=== PATIENT | male | born 1945 | race Caucasian/White ===

== ENCOUNTER → 2020-11-09 14:03 | Outpatient (BNVA) | payer MEDICARE, SELFPAY | PROVIDERS: PCP Internal Medicine; Visit Provider Hospitalist | DX: R06.00 Dyspnea, unspecified (principal); J44.1 Chronic obstructive pulmonary disease with (acute) exacerbation; R05 Cough; Z79.899 Other long term (current) drug therapy | CPT/HCPCS: 99212 ==

== ENCOUNTER → 2020-12-06 14:07 | Outpatient (BNVA) | payer MEDICARE, SELFPAY | PROVIDERS: PCP Internal Medicine; Visit Provider Hospitalist | DX: R05 Cough (principal); R06.00 Dyspnea, unspecified; J44.1 Chronic obstructive pulmonary disease with (acute) exacerbation; J90 Pleural effusion, not elsewhere classified | CPT/HCPCS: 99212 ==

== ENCOUNTER → 2021-01-24 15:03 | Outpatient (BNVA) | payer MEDICARE, SELFPAY | PROVIDERS: PCP Internal Medicine; Visit Provider Hospitalist | DX: J44.1 Chronic obstructive pulmonary disease with (acute) exacerbation (principal); J90 Pleural effusion, not elsewhere classified; R06.00 Dyspnea, unspecified | CPT/HCPCS: 99212 ==

== ENCOUNTER → 2021-06-18 15:31 | Outpatient (BNVA) | payer MEDICARE, SELFPAY | PROVIDERS: PCP Internal Medicine; Visit Provider Hospitalist | DX: J44.1 Chronic obstructive pulmonary disease with (acute) exacerbation (principal); J90 Pleural effusion, not elsewhere classified; R05.9 Cough, unspecified; Z79.899 Other long term (current) drug therapy | CPT/HCPCS: 99212 ==

== ENCOUNTER 2021-07-17 14:00 | Outpatient (RCR) | payer MEDICARE, SELFPAY | END 2021-08-23 11:30 | disposition home or self-care (01) | LOC: HO.PT 14:00 | PROVIDERS: Visit Provider Internal Medicine | DX: R26.9 Unspecified abnormalities of gait and mobility (principal) | CPT/HCPCS: 97110; 97112; 97116; 97162; 97164; 97530 ==

== ENCOUNTER → 2021-08-01 10:35 | Outpatient (BNVA) | payer MEDICARE, SELFPAY | PROVIDERS: PCP Internal Medicine; Visit Provider Urology | DX: N28.1 Cyst of kidney, acquired (principal); C64.9 Malignant neoplasm of unspecified kidney, except renal pelvis | CPT/HCPCS: 99212 ==

== ENCOUNTER → 2021-08-16 11:24 | Outpatient (BNVA) | payer MEDICARE, SELFPAY | PROVIDERS: PCP Internal Medicine; Visit Provider Urology | DX: C64.9 Malignant neoplasm of unspecified kidney, except renal pelvis (principal) | CPT/HCPCS: Q3014 ==

== ENCOUNTER → 2022-01-07 11:21 | Outpatient (BNVA) | payer MEDICARE, SELFPAY | PROVIDERS: PCP Internal Medicine; Visit Provider Urology | DX: C64.9 Malignant neoplasm of unspecified kidney, except renal pelvis (principal) | CPT/HCPCS: Q3014 ==

== ENCOUNTER 2022-04-17 09:28 | Outpatient (RCR) | payer MEDICARE, SELFPAY | END 2022-04-29 14:07 | disposition home or self-care (01) | LOC: HO.WCC 09:28 | PROVIDERS: Visit Provider Surgery | DX: L98.492 Non-pressure chronic ulcer of skin of other sites with fat layer exposed (principal); G62.9 Polyneuropathy, unspecified; I11.0 Hypertensive heart disease with heart failure; I50.9 Heart failure, unspecified; J44.9 Chronic obstructive pulmonary disease, unspecified; Z79.2 Long term (current) use of antibiotics; Z79.899 Other long term (current) drug therapy | CPT/HCPCS: 99212; 99213 ==

== ENCOUNTER 2022-07-07 15:18 | Outpatient (REF) | payer MEDICARE, SELFPAY ==
[2022-07-07 15:36] LABS: MANUAL DIFF FLAG NO
[2022-07-07 16:25] LABS: Basophils Absolute Auto 0.1 X10*3/uL (0.0-0.2); Basophils Percent Auto 0.8 % (0-2); Eosinophils Absolute Auto 0.1 X10*3/uL (0.0-0.4); Hematocrit 40.2 % (42.0-52.0); Hemoglobin 13.2 g/dl (14.0-18.0); Imm Gran Abs Auto 0.02 X10*3/uL (0.00-0.03); Imm Gran Pct Auto 0.3 % (0.0-0.4); Lymphocytes Absolute Auto 1.2 X10*3/uL (1.2-4.9); Lymphocytes Percent Auto 19.9 % (20-40); Mean Corpuscular HGB Conc 32.8 g/dl (31.0-36.0); Mean Corpuscular Hemoglobin 31.3 pg (27.0-33.0); Mean Corpuscular Volume 95.3 fL (80.0-98.0); Monocytes Absolute Auto 0.5 X10*3/uL (0.1-1.2); Monocytes Percent Auto 7.8 % (2-11); Neutrophils Absolute Auto 4.3 x10*3/uL (2.0-8.3); Neutrophils Percent Auto 69.2 % (45-73); Platelet Count 236 X10*3/uL (160-400); Red Blood Count 4.22 X10*6/uL (4.60-5.80); Red Cell Distribution Width 15.7 % (11.0-16.0); White Blood Count 6.1 X10*3/uL (4.8-10.8)
[2022-07-07 16:33] LABS: Prothrombin Time 11.9 SEC (10.0-13.1)
[2022-07-07 16:36] LABS: Partial Thromboplastin Time 33.3 SEC (26.0-36.4)
[2022-07-07 16:47] LABS: Blood Urea Nitrogen 17 mg/dL (9-16); Estimated Glomerular Filt Rate > 60
== END 2022-07-07 15:19 | disposition home or self-care (01) ==
LOC: HO.CT 15:18
PROVIDERS: PCP Internal Medicine; Visit Provider Urology
DX: C64.9 Malignant neoplasm of unspecified kidney, except renal pelvis (principal)
CPT/HCPCS: 36415; 82565; 84520; 85025; 85610; 85730

== ENCOUNTER → 2022-07-15 11:36 | Outpatient (BNVA) | payer MEDICARE, SELFPAY | PROVIDERS: PCP Internal Medicine; Visit Provider Urology | DX: R33.9 Retention of urine, unspecified (principal) ==

== ENCOUNTER → 2022-07-15 11:36 | Outpatient (BNVA) | payer MEDICARE, SELFPAY | PROVIDERS: PCP Internal Medicine; Visit Provider Urology | DX: Z13.89 Encounter for screening for other disorder (principal) ==

== ENCOUNTER → 2022-08-19 15:55 | Outpatient (BNVA) | payer MEDICARE, SELFPAY | PROVIDERS: PCP Internal Medicine; Visit Provider Urology | DX: R33.9 Retention of urine, unspecified (principal); C64.9 Malignant neoplasm of unspecified kidney, except renal pelvis | CPT/HCPCS: Q3014 ==

== ENCOUNTER → 2022-09-26 09:53 | Outpatient (BNVA) | payer MEDICARE, SELFPAY | PROVIDERS: PCP Internal Medicine; Visit Provider Urology | DX: R33.9 Retention of urine, unspecified (principal) | CPT/HCPCS: 51700; 51798; 99212 ==

== ENCOUNTER 2023-02-13 13:08 | Outpatient (REF) | payer MEDICARE, SELFPAY ==
--- NOTE | ~2023-02-13 | US_ITS ---
EXAMINATION: US RETROPERITONEAL LIMITED (RENAL ONLY) CLINICAL INFORMATION: Malignant neoplasm of unspecified kidney, except renal pelvis. COMPARISON: None available. TECHNIQUE: Real-time imaging of the kidneys. FINDINGS: RIGHT KIDNEY: 10.0 x 3.5 x 5.8 cm (SAG x AP x TRV). The kidney is normal in size, contour, and echogenicity. Renal cortical thickness is normal. No renal calculi or hydronephrosis. Benign-appearing renal cysts measuring up to 5 cm. No follow-up imaging is recommended. A 2.1 cm prominent echogenic region in the right lower pole renal sinus favored to reflect prominent renal sinus fat though a discrete mass would be difficult to exclude and therefore recommend further evaluation with contrast-enhanced CT or MR renal mass protocol. LEFT KIDNEY: 11.4 x 5.4 x 5.3 cm (SAG x AP x TRV). The kidney is normal in size, contour, and echogenicity. Renal cortical thickness is normal. No renal calculi or hydronephrosis. Benign-appearing renal cysts measuring up to 1.6 cm. No follow-up imaging is recommended. US/US renal BI IMPRESSION: A 2.1 cm prominent echogenic region in the right lower pole renal sinus favored to reflect prominent renal sinus fat though a discrete mass would be difficult to exclude and therefore recommend further evaluation with contrast-enhanced CT or MR renal mass protocol.
== END 2023-02-13 13:09 | disposition home or self-care (01) ==
LOC: HO.US 13:08
PROVIDERS: PCP Internal Medicine; Visit Provider Urology
DX: C64.9 Malignant neoplasm of unspecified kidney, except renal pelvis (principal)
CPT/HCPCS: 76775

== ENCOUNTER 2023-02-24 11:54 | Outpatient (AMB) | payer MEDICARE, SELFPAY ==
--- NOTE | 2023-02-24 12:03 | A.OFFVIS_ITS ---
Intake Intake Visit Reasons: 6M US(set) Intake Note: Patient is Present for Follow Up US/PVR Urology Medication: Finasteride, Oxybutynin, Vitamin B6, Tamsulosin Antibiotic Allergies: None Blood Thinners: Plavix Pharmacy: [facility] PVR: 16 Allergies No Known Allergies Allergy (Verified 02/24/23 12:05) Medication List - Last Reconciled 02/24/23 by Kaushal Ballesteros MD albuterol sulfate 90 mcg/actuation (ProAir HFA) 2 puffs inhalation QID allopurinol 100 mg PO DAILY amlodipine 10 mg PO DAILY atorvastatin 20 mg PO BEDTIME benzonatate 200 mg PO TID PRN 30 days budesonide 0.5 mg (2 mL) inhalation BID 30 days carvedilol 3.125 mg PO cetirizine (Zyrtec) 10 mg PO DAILY 30 days ciprofloxacin HCl 250 mg PO BID 5 days clopidogrel 75 mg PO DAILY clotrimazole 1% appl topical BID escitalopram oxalate 20 mg PO DAILY finasteride 5 mg PO DAILY 90 days fluticasone propionate 50 mcg/actuation 2 sprays intranasal DAILY 30 days [id number]-wmqsjwkiw-khyyqkpq 100-62.5-25 mcg (Trelegy Ellipta) 1 inh inhalation DAILY 30 days folic acid 1 mg PO DAILY furosemide (Lasix) 20 mg PO DAILY hydralazine 25 mg PO BID ipratropium bromide 17 mcg/actuation (Atrovent HFA) 0 mcg inhalation lactulose (Enulose) mL PO BID PRN levalbuterol HCl 0.63 mg (3 mL) inhalation BID 90 days metoprolol succinate ER 50 mg PO DAILY metoprolol tartrate 25 mg PO BID nifedipine ER 90 mg PO omeprazole 40 mg PO DAILY oxybutynin chloride 5 mg PO Q8H PRN 30 days potassium chloride ER (Klor-Con M) 20 mEq PO BID pyridoxine (vitamin B6) 50 mg PO spironolactone 50 mg PO BID terazosin 10 mg PO BEDTIME 30 days trazodone 100 mg PO HPI HPI Comments History of Present Illness Details Brayden CORTEZ is a very pleasant male. He is a patient of Dr Hartley. He is seen for the following urologic conditions. - renal mass - erectile dysfunction - lower urinary tract symptoms Has been getting up 3 times at night Will adjust voiding medications Switch from tamsulosin to terazosin Two month follow-up tele visit Will need renal MRI early 2023 Renal Cancer:? They present for ?evaluation of renal mass, right side.? The renal mass was diagnosed?incidentally ?- has multiple renal cysts. MRI performed showing 1.7 cm solid right lower pole lesion..? 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 Intervention - 12/20 cryotherapy [facility] Dr Dennison Lower urinary tract symptoms Episode of urinary retention following left inguinal hernia repair Had over 1000 cc in bladder Emery catheter for 3 weeks Accompanied by daughter who is a nurse at [employer] Past voiding trial Erectile dysfunction:? Has not used medications since last visit. ? He presents today for?for continued evaluation and management of erectile dysfunction.? Symptoms have been present for/since?Ongoing since coronary bypass.? Current treatment includes?none.? Prior therapies include?oral medications ?- Viagra previously.? Currently they are?in a stable relationship.? Associated problems? hypertension ?Yes ? diabetes ?No ? dyslipidemia ?Yeso ? Overall he is ?is not satisfied with the current management.? Therapeutic plan includes?increasing dose of oral medication ?- escalating dose to maximum 200 mg.? PFSH Medical History Afib COPD (chronic obstructive pulmonary disease) Cough Dyspnea Heart disease Pleural effusion Social History Patient Tobacco Use Status: Former Tobacco user Tobacco use type: Cigarette Years Smoked: 8 years Review of Systems Const Denies chills and Denies fever(s) Card Reports no additional complaints and Denies syncope Resp Denies cough GI Denies abdominal pain and Denies heartburn Reports as per HPI and Denies change in libido Neuro Denies syncope Psych Denies change in libido Endo Denies change in libido Physical Exam Const General: cooperative, healthy appearing, comfortable and no acute distress Orientation/consciousness: patient oriented x3 HEENT Face and sinus: Yes normal facial exam Mouth: moist mucous membranes Neck Neck: Yes normal visual inspection, Yes full ROM and Yes trachea midline Chest Chest palpation & inspection: normal inspection of the chest Resp Effort & Inspection: normal respiratory effort, able to speak in complete sentences and no respiratory distress GI Inspection: Yes normal to inspection Back/Spine/Pelvis Cervical Spine: normal cervical lordosis Thoracic/Lumbar Spine: thoracic and lumbar spine normal to inspection Skin General skin exam: no rashes or lesions noted Neuro General: patient oriented x3, gait normal, tone normal and moves all extremities Extrem General: Yes normal to inspection and Yes capillary refill normal Office Procedures Post Void Residual Post Residual Void Post Void Residual (PVR): 16 [id number] Void Residual by ultrasound Assessment & Plan Assessment & Plan (1) Incomplete emptying of bladder due to benign prostatic hyperplasia: Code(s): N40.1 - Benign prostatic hyperplasia with lower urinary tract symptoms; R33.9 - Retention of urine, unspecified (2) Weak urinary stream: Code(s): R39.12 - Poor urinary stream Plan Two month trial terazosin Orders: Orders AMB Urinalysis Automated Today Z13.9 - Encounter for screening, unspecified AMB Post Void Residual by ultrasound Today R33.9 - Retention of urine, unsp ecified Medications: New terazosin 10 mg PO BEDTIME 30 caps 1RF 30 days N13.8 - Other obstructive and reflux uropathy, N40.1 - Benign prostatic hyperplasia with lower urinary tract symptoms, R33.9 - Retention of urine, unspecified Discontinued tamsulosin Discontinued Reason: Doctor's Order 0.8 mg (2 x 0.4 mg) PO BEDTIME 180 caps 3RF 90 days R33.9 - Retention of urine, unspecified Patient Instructions: Imaging studies, laboratory and physical exam results were discussed and reviewed in detail. No major barriers to patient understanding were identified. An opportunity to ask questions regarding the treatment plan was provided. All questions were answered. The patient expressed understanding and agreement with the above treatment plan. The patient is aware they should contact our office by phone for worsening of their current condition or the appearance of new urologic symptoms. Compliance is encouraged with any medications and followup testing that is ordered. It is a privilege to participate in the urologic care of your patient. If you have any questions or concerns regarding treatment for the above conditions, or other urologic issues, please do not hesitate to contact me. The office telephone contact is [phone]. This note is constructed using voice recognition software. While every effort has been made to ensure accuracy new autos delivery driver errors may have been included. Yours sincerely, Dr Kaushal Ballesteros MD, [facility] - Urology Providers of Expert, Compassionate Care for the Genitourinary System Coding Level of Care Code Est Pt Level 4 (75635) Diagnoses Incomplete emptying of bladder due to benign prostatic hyperplasia N40.1; R33.9 Weak urinary stream R39.12 CPT Codes Post Residual Void - PVR CPT Code: 08765-Qlpf Void Residual by ultrasound ([id number])
== END 2023-02-24 12:22 | disposition home or self-care (01) ==
PROVIDERS: PCP Internal Medicine; Visit Provider Urology
DX: N40.1 Benign prostatic hyperplasia with lower urinary tract symptoms (principal); R33.9 Retention of urine, unspecified; R39.12 Poor urinary stream
CPT/HCPCS: 99214

== ENCOUNTER → 2023-02-24 11:54 | Outpatient (BNVA) | payer MEDICARE, SELFPAY | PROVIDERS: Visit Provider Urology | DX: N40.1 Benign prostatic hyperplasia with lower urinary tract symptoms (principal); N13.8 Other obstructive and reflux uropathy; R33.9 Retention of urine, unspecified; R39.12 Poor urinary stream; N52.9 Male erectile dysfunction, unspecified; N28.89 Other specified disorders of kidney and ureter | CPT/HCPCS: 51798; 99212 ==

== ENCOUNTER 2023-04-29 11:18 | Outpatient (AMB) | payer MEDICARE, SELFPAY ==
--- NOTE | 2023-04-29 11:48 | MHC.OFFVIS ---
Intake Intake Visit Reasons: 2m follow up Allergies No Known Allergies Allergy (Verified 04/29/23 11:18) Medication List - Last Reconciled 04/29/23 by Kaushal Ballesteros MD albuterol sulfate 90 mcg/actuation (ProAir HFA) 2 puffs inhalation QID allopurinol 100 mg PO DAILY amlodipine 10 mg PO DAILY atorvastatin 20 mg PO BEDTIME benzonatate 200 mg PO TID PRN 30 days budesonide 0.5 mg (2 mL) inhalation BID 30 days carvedilol 3.125 mg PO cetirizine (Zyrtec) 10 mg PO DAILY 30 days ciprofloxacin HCl 250 mg PO BID 5 days clopidogrel 75 mg PO DAILY clotrimazole 1% appl topical BID escitalopram oxalate 20 mg PO DAILY finasteride 5 mg PO DAILY 90 days fluticasone propionate 50 mcg/actuation 2 sprays intranasal DAILY 30 days [id number]-axtuivfww-yzpyctlb 100-62.5-25 mcg (Trelegy Ellipta) 1 inh inhalation DAILY 30 days folic acid 1 mg PO DAILY furosemide (Lasix) 20 mg PO DAILY hydralazine 25 mg PO BID ipratropium bromide 17 mcg/actuation (Atrovent HFA) 0 mcg inhalation lactulose (Enulose) mL PO BID PRN levalbuterol HCl 0.63 mg (3 mL) inhalation BID 90 days metoprolol succinate ER 50 mg PO DAILY metoprolol tartrate 25 mg PO BID nifedipine ER 90 mg PO omeprazole 40 mg PO DAILY oxybutynin chloride 5 mg PO Q8H PRN 30 days potassium chloride ER (Klor-Con M) 20 mEq PO BID pyridoxine (vitamin B6) 50 mg PO spironolactone 50 mg PO BID terazosin 10 mg PO BEDTIME 90 days trazodone 100 mg PO HPI HPI Comments History of Present Illness Details Brayden CORTEZ is a very pleasant male. He is a patient of Dr Hartley. He is seen for the following urologic conditions. - renal mass - erectile dysfunction - lower urinary tract symptoms Telemedicine Evaluation 15 min Consultation [facility] [email or web address] attempted Minor benefit from terazosin Will refill prescription Plan for renal MRI early 2023 - will be 18 months from cryotherapy Home tel [phone] Renal Cancer:? They present for ?evaluation of renal mass, right side.? The renal mass was diagnosed?incidentally ?- has multiple renal cysts. MRI performed showing 1.7 cm solid right lower pole lesion..? 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 Intervention - 12/[address] [facility] [address] Dennison Lower urinary tract symptoms Episode of urinary retention following left inguinal hernia repair Had over 1000 cc in bladder Emery catheter for 3 weeks Accompanied by daughter who is a nurse at [employer] Past voiding trial Erectile dysfunction:? Has not used medications since last visit. ? He presents today for?for continued evaluation and management of erectile dysfunction.? Symptoms have been present for/since?Ongoing since coronary bypass.? Current treatment includes?none.? Prior therapies include?oral medications ?- Viagra previously.? Currently they are?in a stable relationship.? Associated problems? hypertension ?Yes ? diabetes ?No ? dyslipidemia ?Yes ? Overall he is ?is not satisfied with the current management.? Therapeutic plan includes?increasing dose of oral medication ?- escalating dose to maximum 200 mg.? PFSH Medical History Pleural effusion Cough Afib Heart disease Dyspnea COPD (chronic obstructive pulmonary disease) Social History Patient Tobacco Use Status: Former Tobacco user Tobacco use type: Cigarette Years Smoked: 8 years Assessment & Plan Assessment & Plan (1) Urinary retention: Code(s): R33.9 - Retention of urine, unspecified (2) Renal cancer: Comment: 12/20 Right lower pole 2.5 cm - chromphobe Code(s): C64.9 - Malignant neoplasm of unspecified kidney, except renal pelvis Plan Four month follow-up MRI with labs Orders: Orders kidney wo con 4 Months C64.9 - Malignant neoplasm of unspecified kidney, except renal pelvis Creatinine 4 Months C64.9 - Malignant neoplasm of unspecified kidney, except renal pelvis Blood Urea Nitrogen 4 Months C64.9 - Malignant neoplasm of unspecified kidney, except renal pelvis Medications: Changed From terazosin 10 mg PO BEDTIME 30 days 30 caps 1RF N13.8 - Other obstructive and reflux uropathy, N40.1 - Benign prostatic hyperplasia with lower urinary tract symptoms, R33.9 - Retention of urine, unspecified To terazosin 10 mg PO BEDTIME 90 days 90 caps 1RF N13.8 - Other obstructive and reflux uropathy, N40.1 - Benign prostatic hyperplasia with lower urinary tract symptoms, R33.9 - Retention of urine, unspecified Patient Instructions: Imaging studies, laboratory and physical exam results were discussed and reviewed in detail. No major barriers to patient understanding were identified. An opportunity to ask questions regarding the treatment plan was provided. All questions were answered. The patient expressed understanding and agreement with the above treatment plan. The patient is aware they should contact our office by phone for worsening of their current condition or the appearance of new urologic symptoms. Compliance is encouraged with any medications and followup testing that is ordered. It is a privilege to participate in the urologic care of your patient. If you have any questions or concerns regarding treatment for the above conditions, or other urologic issues, please do not hesitate to contact me. The office telephone contact is [phone]. This note is constructed using voice recognition software. While every effort has been made to ensure accuracy catering administrative assistant errors may have been included. Yours sincerely, Dr Kaushal Ballesteros MD, [facility] - Urology Providers of Expert, Compassionate Care for the Genitourinary System Telehealth Telehealth Location of provider rendering services: practice address Location of patient: address on file Patient Identification confirmed using: Name, : Yes Telehealth method: video Patient verbally consented to treatment: Yes Patient verbally consented to billing insurance company: Yes Patient informed of any privacy concerns related to visit: Yes Coding Level of Care Code Tele Est Pt Level 3 (37091) Diagnoses Urinary retention R33.9 Renal cancer C64.9
== END 2023-04-29 12:02 | disposition home or self-care (01) ==
LOC: HO.HUSH 11:18
PROVIDERS: PCP Internal Medicine; Visit Provider Urology
DX: C64.9 Malignant neoplasm of unspecified kidney, except renal pelvis (principal); R33.9 Retention of urine, unspecified
CPT/HCPCS: 99214

== ENCOUNTER → 2023-04-29 11:18 | Outpatient (BNVA) | payer MEDICARE, SELFPAY | PROVIDERS: PCP Internal Medicine; Visit Provider Urology ==

== ENCOUNTER 2023-09-01 13:05 | Outpatient (REF) | payer MEDICARE, SELFPAY ==
--- NOTE | ~2023-09-01 | MR_ITS ---
EXAMINATION: MRI KIDNEY WITHOUT/WITH CONTRAST. INDICATION: Urine retention, right lower renal sinus echogenic lesion found on ultrasound examination. COMPARISON: Ultrasound of the kidneys on 02/13/2023 TECHNIQUE: Examination was performed in a high field strength MRI scanner. Multiplanar multiphasic imaging of the abdomen was performed without IV contrast enhancement. Multiphasic Axial T1 weighted fat suppressed images of the upper abdomen were obtained after IV injection of 8.5 mL Gadavist. Coronal T1 weighted fat-suppressed images of the abdomen were obtained following the dynamic axial series. FINDINGS: LIVER: The liver shows multiple T2 hyperintense nonenhancing cystic lesions. The largest cyst is seen in right hepatic dome segment 8 measuring 1.7 cm in size. The largest left hepatic cyst is 1.0 cm in diameter at anterior capsular border of left hepatic lobe segment 2. The calculated hepatic fat percentage is 11.8%, compatible with mild hepatic steatosis. HEPATOBILIARY: Gallbladder contains multiple gravitating gallstones. Common bile duct is not dilated. PANCREAS: A cystic lesion is seen in distal pancreatic body measuring 0.5 cm in diameter. Pancreatic duct is not dilated. SPLEEN: Spleen is normal in size without focal lesion. ADRENAL: The Left adrenal gland is normal in shape and size. The Right adrenal gland shows abnormal enlargement into an oval shaped mass measuring 2.9 cm in AP diameter, 1.4 cm in width, 1.5 cm in vertical height. There is significant signal loss in the out of phase image. Mean signal intensity of the tumor is 441 in in-phase image and 118 in [id number] image. The calculated adrenal to spleen chemical shift ratio (Adrenal SIo/Spleen SIo)/(Adrenal SIi/Spleen SIi) is 0.24 (threshold for benign adenoma is <0.71). The calculated signal intensity ratio (Adrenal SIi - Adrenal SIo)100%/Adrenal SIi is 73.2 (threshold for benign adenoma is >16.5). KIDNEYS: Bilateral kidneys are normal in size with bilateral multiple T2 hyperintense nonenhancing cystic lesions. The largest cyst is found in superior right renal pole measuring 5.2 cm in diameter. The largest left renal cyst is seen in anterior mid left renal cortex measuring 1.6 x 1.1 cm in size, for which no follow up imaging is recommended.. Normal right lower renal sinus fat with suppressed signal on LAVA images are seen. No focal lesion with abnormal signal or enhancement could be found in the right lower renal sinus region reported on ultrasound examination. Multilevel severe degenerative lumbar disc disease from L1-L2 to L5-S1, prominent posterior osteophyte disc complex protrusions are present, could cause significant spinal stenosis. MR/MR kidney wo/w con IMPRESSION: 1. Bilateral multiple renal cysts, for which no follow up imaging is recommended. 2. No focal lesion with abnormal signal or enhancement could be found in the right lower renal sinus region reported on ultrasound examination. 3. Right adrenal lipomatous lesion is found, compatible with a benign adenoma. 4. Mild hepatic steatosis. 5. Marked Cholelithiasis. 6. A 0.5 cm cystic lesion in distal pancreatic body, could represent a side branch intraductal papillary mucinous neoplasm. Follow-up pre and postcontrast MRI abdomen with MRCP sequence every 2 years x5 to document stability over a minimum of 10 years or when patient reaches the age of 80 is recommended by [employer]. 7. Multilevel severe degenerative lumbar disc disease from L1-L2 to L5-S1, prominent posterior osteophyte disc complex protrusions are present, could cause significant spinal stenosis.
[2023-09-01] MEDS: gadobutroL 10 ML VIAL IVPUSH (14:05)
== END 2023-09-01 13:06 | disposition home or self-care (01) ==
LOC: HO.MRI 13:05
PROVIDERS: PCP Internal Medicine; Visit Provider Urology
DX: N40.1 Benign prostatic hyperplasia with lower urinary tract symptoms (principal); R33.8 Other retention of urine
CPT/HCPCS: 74183; A9585

== ENCOUNTER 2023-09-08 13:30 | Outpatient (AMB) | payer MEDICARE, SELFPAY ==
--- NOTE | 2023-09-08 13:31 | MHC.OFFVIS ---
Intake Intake Visit Reasons: 4M/MRI/LABS (LVM) Intake Note: Patient is Present for Telephone Follow Up For Urology Med: Finasteride, Oxybutynin, Vitamin B6, Terazosin Antibiotic Allergy: None Blood Thinner: Plavix Allergies No Known Allergies Allergy (Verified 09/08/23 13:32) Medication List - Last Reconciled 09/08/23 by Kaushal Ballesteros MD albuterol sulfate 90 mcg/actuation (ProAir HFA) 2 puffs inhalation QID allopurinol 100 mg PO DAILY amlodipine 10 mg PO DAILY atorvastatin 20 mg PO BEDTIME benzonatate 200 mg PO TID PRN 30 days budesonide 0.5 mg (2 mL) inhalation BID 30 days carvedilol 3.125 mg PO cetirizine (Zyrtec) 10 mg PO DAILY 30 days ciprofloxacin HCl 250 mg PO BID 5 days clopidogrel 75 mg PO DAILY clotrimazole 1% appl topical BID escitalopram oxalate 20 mg PO DAILY finasteride 5 mg PO DAILY 90 days fluticasone propionate 50 mcg/actuation 2 sprays intranasal DAILY 30 days ufavpbgcrqz-ipzhmnsub-gamtyrwo 100-62.5-25 mcg (Trelegy Ellipta) 1 inh inhalation DAILY 30 days folic acid 1 mg PO DAILY furosemide (Lasix) 20 mg PO DAILY hydralazine 25 mg PO BID ipratropium bromide 17 mcg/actuation (Atrovent HFA) 0 mcg inhalation lactulose (Enulose) mL PO BID PRN levalbuterol HCl 0.63 mg (3 mL) inhalation BID 90 days metoprolol succinate ER 50 mg PO DAILY metoprolol tartrate 25 mg PO BID nifedipine ER 90 mg PO omeprazole 40 mg PO DAILY potassium chloride ER (Klor-Con M) 20 mEq PO BID pyridoxine (vitamin B6) 50 mg PO spironolactone 50 mg PO BID trazodone 100 mg PO HPI HPI Comments History of Present Illness Details Brayden CORTEZ is a very pleasant male. He is a patient of Dr Hartley. He is seen for the following urologic conditions. - renal mass - erectile dysfunction - lower urinary tract symptoms Telemedicine Evaluation 15 min Consultation [facility] Video attempted Twenty-four months from intervention Cryotherapy change on lower pole lesion right side Refill finasteride for urination Six-month follow-up office [facility] tel [phone] Renal Cancer:? They present for ?evaluation of renal mass, right side ? The renal mass was diagnosed?incidentally ?- has multiple renal cysts. MRI performed showing 1.7 cm solid right lower pole lesion..? 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 Intervention - 12/20 cryotherapy [facility] Dr [place]enn[place] Lower urinary tract symptoms Episode of urinary retention following left inguinal hernia repair Had over 1000 cc in bladder Emery catheter for 3 weeks Accompanied by daughter who is a nurse at [employer] Past voiding trial Erectile dysfunction:? Has not used medications since last visit. ? He presents today for?for continued evaluation and management of erectile dysfunction.? Symptoms have been present for/since?Ongoing since coronary bypass.? Current treatment includes?none.? Prior therapies include?oral medications ?- Viagra previously.? Currently they are?in a stable relationship.? Associated problems? hypertension ?Yes ? diabetes ?No ? dyslipidemia ?Yes ? Overall he is ?is not satisfied with the current management.? Therapeutic plan includes?increasing dose of oral medication ?- escalating dose to maximum 200 mg.? PFSH Medical History Pleural effusion Cough Afib Heart disease Dyspnea COPD (chronic obstructive pulmonary disease) Social History Patient Tobacco Use Status: Former Tobacco user Tobacco use type: Cigarette Years Smoked: 8 years Review of Systems Const All systems reviewed & are unremarkable except as noted in HPI and below Reports no additional complaints Resp Reports no additional complaints GI Reports no additional complaints Reports as per HPI Musc Reports no additional complaints Physical Exam Telemedicine evaluation Appropriate responses Regular breathing rate and rhythm HEENT Head: Yes normal to inspection Ears: hearing grossly normal bilaterally Eyes General: appearance normal, both eyes and all related structures Neck Neck: Yes normal visual inspection Chest Chest palpation & inspection: normal inspection of the chest Resp Effort & Inspection: normal respiratory effort and able to speak in complete sentences Assessment & Plan Assessment & Plan (1) Weak urinary stream: Code(s): R39.12 - Poor urinary stream (2) Urinary retention: Code(s): R33.9 - Retention of urine, unspecified (3) Incomplete emptying of bladder due to benign prostatic hyperplasia: Code(s): N40.1 - Benign prostatic hyperplasia with lower urinary tract symptoms; R33.9 - Retention of urine, unspecified (4) Renal cancer: Comment: 12/20 Right lower pole 2.5 cm - chromphobe Code(s): C64.9 - Malignant neoplasm of unspecified kidney, except renal pelvis Plan Six-month follow-up office [facility] Medications: Refilled finasteride 5 mg PO DAILY 90 days 90 tabs 1RF R33.9 - Retention of urine, unspecified Discontinued oxybutynin chloride Discontinued Reason: Patient Completed Course 5 mg PO Q8H 30 days PRN 30 tabs 0RF bladder spasms R33.9 - Retention of urine, unspecified, R39.15 - Urgency of urination terazosin Discontinued Reason: Patient Completed Course 10 mg PO BEDTIME 90 days 90 caps 1RF N13.8 - Other obstructive and reflux uropathy, N40.1 - Benign prostatic hyperplasia with lower urinary tract symptoms, R33.9 - Retention of urine, unspecified Patient Instructions: Imaging studies, laboratory and physical exam results were discussed and reviewed in detail. No major barriers to patient understanding were identified. An opportunity to ask questions regarding the treatment plan was provided. All questions were answered. The patient expressed understanding and agreement with the above treatment plan. The patient is aware they should contact our office by phone for worsening of their current condition or the appearance of new urologic symptoms. Compliance is encouraged with any medications and followup testing that is ordered. It is a privilege to participate in the urologic care of your patient. If you have any questions or concerns regarding treatment for the above conditions, or other urologic issues, please do not hesitate to contact me. The office telephone contact is [phone]. This note is constructed using voice recognition software. While every effort has been made to ensure accuracy fire hose curer errors may have been included. Yours sincerely, Dr Kaushal Ballesteros MD, [facility] - Urology Providers of Expert, Compassionate Care for the Genitourinary System Telehealth Telehealth Location of provider rendering services: practice address Location of patient: address on file Patient Identification confirmed using: Name, : Yes Telehealth method: video Patient verbally consented to treatment: Yes Patient verbally consented to billing insurance company: Yes Patient informed of any privacy concerns related to visit: Yes Coding Level of Care Code Tele Est Pt Level 3 (44784) Diagnoses Weak urinary stream R39.12 Urinary retention R33.9 Incomplete emptying of bladder due to benign prostatic hyperplasia N40.1; R33.9 Renal cancer C64.9
== END 2023-09-08 14:34 | disposition home or self-care (01) ==
LOC: HO.HUSH 13:30
PROVIDERS: PCP Internal Medicine; Visit Provider Urology
DX: C64.9 Malignant neoplasm of unspecified kidney, except renal pelvis (principal); N40.1 Benign prostatic hyperplasia with lower urinary tract symptoms; R33.9 Retention of urine, unspecified; R39.12 Poor urinary stream
CPT/HCPCS: 99214

== ENCOUNTER → 2023-09-08 13:30 | Outpatient (BNVA) | payer MEDICARE, SELFPAY | PROVIDERS: PCP Internal Medicine; Visit Provider Urology ==